=== PATIENT | female | born 1995 | race African-American/Black ===

== ENCOUNTER 2017-02-18 15:00 | Emergency (ER) | payer BC, OTHER ==
[~2017-02-18] VITALS: Ht 170.2 cm; Wt 77.0 kg
[2017-02-18 15:02] VITALS: TEMP 37.1; Ht 170.2 cm; Wt 77.0 kg
--- NOTE | 2017-02-18 15:30 | EMERGENCY ROOM VISIT NOTE ---
History Report prepared by Vannessa: Kenia Reese Under the Supervision of: Dr. Tramaine Peterson M.D. First contact with patient: 15:10 Chief Complaint: ED VAG BLEEDING Stated Complaint: VAG BLEEDING History of Present Illness The patient is a 21 year old female who presents to the Emergency Room with complaints of worsening vaginal bleeding starting 30 minutes ago. She was brought to the ED by EMS. She used one pad today for the breathing, but decided to come to the ED after the bleeding worsened. The patient had an 2 months ago. It was her first . Since then she has not had a period, but has had some spotting. She denies any odor, discharge, or infection after her . She was not put on antibiotics after her . She reports some abdominal cramps and chills. She denies any fever or lightheadedness. She denies having any intercourse prior to the bleeding starting. She denies any recent falls. She is not on any blood thinners or other medications. She got her last Depo injection 3 months ago prior to learning she was . Source of History: patient Onset: 30 minutes ago Position: other (vaginal) Quality: other (bleeding) Timing: worsening Associated Symptoms: + abdominal pain, + chills, No fevers Note: Pt denies any vaginal odor, discharge, or infection. Pt denies lightheadedness. Review of Systems All systems have been listed, reviewed, and are negative other than those previously mentioned. Please see Additional Medical History Sheet. Past Medical & Surgical Surgical Problems: (1) Family History Pt reports no pertinent family history. Social History Smoking Status: Never Smoker Alcohol Use: occasionally Marital Status: single Housing Status: lives with family Occupation Status: student Current/Historical Medications Scheduled Medroxyprogesterone Acetate (C (Depo-Provera Contraceptiv), 150 MG IM UD Misoprostol (Cytotec), 600 MCG PV repeat in 24 hours Allergies Coded Allergies: No Known Allergies (Unverified , 02/18/17) Physical Exam Vital Signs Date Time Temp Pulse Resp B/P Pulse Ox O2 Delivery O2 Flow Rate FiO2 02/18/17 18:08 55 18 122/72 100 Room Air 02/18/17 17:27 59 18 115/64 98 Room Air 02/18/17 16:30 77 18 123/69 99 Room Air 02/18/17 15:02 37.1 77 18 114/83 99 Room Air Physical Exam GENERAL: Patient awake, alert, oriented x 3. Patient follows commands. Patient does not appear toxic. Patient is adequately hydrated and well- nourished. SKIN: No erythema, pallor, cyanosis or rash HEENT: Normal head, pupils equal, reactive to light and accommodation. LUNGS: Clear to auscultation. No wheezes, no rales, no rhonchi. HEART: No murmurs. No gallops. No rubs ABDOMEN: Some vague mid abdominal tenderness. No masses, no rebound, no hepatomegaly or splenomegaly. PELVIC: Less than 2 cc of blood in vaginal vault. Steady flow through os. Uterus enlarged and nontender. Adnexa nonenlarged, nontender. EXTREMITIES: No signs of trauma or infection. NEUROLOGIC: Cranial nerves II-XII within normal limits. No gross motor sensory function deficits. Medical Decision & Procedures ER Provider Diagnostic Interpretation: Radiology results as stated below per my review and radiologist interpretation: EXAMINATION: PELVIC ULTRASOUND (transabdominal and endovaginal scanning) CLINICAL HISTORY: vag bleeding 6 weeks ago COMPARISON STUDY: None FINDINGS: The uterus measured 7.0 x 5.4 x 5.5 cm.. The endometrial stripe measured 2.2 cm. There is heterogeneity of the fundal endometrium with solid and cystic spaces. There is some vascularity noted on Doppler interrogation. The findings possibly represent retained products of conception.. Given the multicystic appearance, trophoblastic disease cannot be excluded. The right ovary measured 34 x 17 x 27 mm. There is a suspected 14 mm corpus luteum.. The left ovary measured 32 x 10 x 17 mm.. There is no ultrasonographic evidence of ovarian torsion. It should be noted that ovarian torsion can be present with normal Doppler ultrasonographic findings. There is mild to moderate free pelvic fluid. IMPRESSION: 1. Thickened heterogeneous fundal endometrium, possibly representing retained products of conception. Given the multicystic appearance, trophoblastic disease cannot be excluded. Correlation with beta hCGs is recommended. Gynecological consultation is recommended.. 2. Mild to moderate free pelvic fluid Electronically signed by: Abhay Coe M.D. 02/18/2017 5:24 PM Dictated Date/Time: 02/18/2017 5:18 PM Laboratory Results 02/18/17 15:20 Test 02/18/17 15:20 Red Blood Count 4.25 M/uL (4.2-5.4) Mean Corpuscular Volume 88.5 fL (80-100) Mean Corpuscular Hemoglobin 28.5 pg (25-34) Mean Corpuscular Hemoglobin Concent 32.2 g/dl (32-36) RDW Standard Deviation 42.8 fL (36.4-46.3) RDW Coefficient of Variation 13.3 % (11.5-14.5) Mean Platelet Volume 11.8 fL (7.4-10.4) Human Chorionic Gonadotropin, Qual NEG (NEG) Laboratory results as stated above per my review. Medications Administered Medications (Trade) Dose Ordered Sig/Brit Route Start Time Stop Time Status Last Admin Dose Admin Misoprostol (Cytotec Tab) 600 mcg ONE ONCE PV 02/18/17 18:30 02/18/17 18:31 DC 02/18/17 18:59 600 MCG ED Course 151: Past medical records reviewed. The patient was evaluated in room B8. A complete history and physical examination was performed. 1749: I reevaluated the patient. She is resting comfortably. I updated her on the results. 1753: I discussed the patients case with Dr. Fonseca [facility] [place] [facility] Section Director. She would like the patient to receive 600 mcg of cytotec today and another dose in 24 hours per vagina. She will follow up in the office on Monday. 1824: Upon reevaluation, the patient appeared to have improvement of her symptoms. I discussed today's findings with her. She verbalized agreement of the treatment plan. She was discharged home. 0: Cytotec Tab 600 mcg PV. Medical Decision Differential diagnoses: retained products of conception, endometritis, anemia The patient has had some spotting since her December 30. Today the bleeding became was much worse. Multiple labs and imaging were performed. Ultrasound is consistent with some retained products of conception. test is negative. The patient is not anemic. The case was discussed with gynecology. Please see above. The patient was prescribed Cytotec. She was cautioned about heavy vaginal bleeding. Patient will need to follow up with gynecology on Monday. Consults Time Called: 1749 Consulting Physician: Dr. Fonseca [facility] [place] [facility] Section Director Returned Call: 1753 I discussed the patient's case with her. She would like the patient to receive 600 mcg of cytotec today and another dose in 24 hours per vagina. She will follow up in the office on Monday Impression Primary Impression: Retained products of conception Additional Impression: History of elective Scribe Attestation The scribe's documentation has been prepared under my direction and personally reviewed by me in its entirety. I confirm that the note above accurately reflects all work, treatment, procedures, and medical decision making performed by me. Departure Information Dispostion Home / Self-Care Prescriptions Misoprostol (CYTOTEC) 200 Mcg Tab 600 MCG PV repeat in 24 hours, #2 TAB Prov: Tramaine Peterson M.D. 02/18/17 Referrals No Doctor, Assigned (PCP) Keri Fonseca M.D. Patient Instructions My [facility] Additional Instructions Insert 600 g of Cytotec into vagina tomorrow about this time. Cytotec will cause significant uterine cramping and vaginal discharge. Call Monday morning to Dr. Fonseca's office for follow-up. Problem Qualifiers
[2017-02-18 15:32] LABS: HEMATOCRIT 37.6 % (37-47); MEAN CELL VOLUME 88.5 fL (80-100); MEAN CORPUSCULAR HEMOGLOBIN 28.5 pg (25-34); MEAN CORPUSCULAR HGB CONC 32.2 g/dl (32-36); MEAN PLATELET VOLUME 11.8 fL (7.4-10.4); PLATELET COUNT 190 K/uL (130-400); RED BLOOD COUNT 4.25 M/uL (4.2-5.4); WHITE BLOOD COUNT 11.87 K/uL (4.8-10.8)
[2017-02-18] MEDS ORDERED: MEDR150I IM (15:37)
[2017-02-18 16:07] LABS: PREG INTERNAL NEGATIVE QC NEG CLEAR BACKGROUND; PREG INTERNAL POSITIVE QC POS CONTROL LINE
--- NOTE | 2017-02-18 17:26 | DIAGNOSTIC IMAGING REPORT ---
EXAMINATION: PELVIC ULTRASOUND (transabdominal and endovaginal scanning) CLINICAL HISTORY: vag bleeding 6 weeks ago COMPARISON STUDY: None FINDINGS: The uterus measured 7.0 x 5.4 x 5.5 cm.. The endometrial stripe measured 2.2 cm. There is heterogeneity of the fundal endometrium with solid and cystic spaces. There is some vascularity noted on Doppler interrogation. The findings possibly represent retained products of conception.. Given the multicystic appearance, trophoblastic disease cannot be excluded. The right ovary measured 34 x 17 x 27 mm. There is a suspected 14 mm corpus luteum.. The left ovary measured 32 x 10 x 17 mm.. There is no ultrasonographic evidence of ovarian torsion. It should be noted that ovarian torsion can be present with normal Doppler ultrasonographic findings. There is mild to moderate free pelvic fluid. IMPRESSION: 1. Thickened heterogeneous fundal endometrium, possibly representing retained products of conception. Given the multicystic appearance, trophoblastic disease cannot be excluded. Correlation with beta hCGs is recommended. Gynecological consultation is recommended.. 2. Mild to moderate free pelvic fluid Electronically signed by: Abhay Coe M.D. 02/18/2017 5:24 PM Dictated Date/Time: 02/18/2017 5:18 PM
[2017-02-18] MEDS ORDERED: MISO200T PV (18:09)
[2017-02-18] MEDS ORDERED: MISOPROSTOL 200 MCG TAB PV ONE (18:30)
[2017-02-18 19:28] VITALS: BP 133/65; PULSE 57; O2SAT 100
== END 2017-02-18 19:28 | disposition home or self-care (01) ==
LOC: C.EDB 15:03
DX: O73.1 Retained portions of placenta and membranes, without hemorrhage (principal); Z87.59 Personal history of other complications of pregnancy, childbirth and the puerperium